=== PATIENT | female | born 1980 ===

== ENCOUNTER 2020-08-07 20:23 | Observation (INO) | payer OTHER ==
--- NOTE | 2020-08-07 20:33 | Event Note ---
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 pain is rated ast 5/10 sharp aching, This initial assessment/diagnostic orders/clinical plan/treatment(s) is/are subject to change based on patients health status, clinical progression and re- assessment by fellow clinical providers in the ED. Further treatment and workup at subsequent clinical providers discretion. Patient/guardian urged not to elope from the ED as their condition may be serious if not clinically assessed and managed. Initial orders include: cmp, cbc, ua, hcg,
[2020-08-07 20:54] LABS: Basophils # (Auto) 0.1 K/mm3 (0.0-0.1); Basophils % (Auto) 0.5 % (0.0-1.8); Eosinophils # (Auto) 0.2 K/mm3 (0.0-0.4); Eosinophils % (Auto) 1.2 % (0.0-4.3); Hematocrit 45.5 % (30.3-42.9); Lymphocytes # (Auto) 1.5 K/mm3 (1.2-5.4); Lymphocytes % (Auto) 10.8 % (13.4-35.0); Mean Corpuscular HGB Conc 33 % (30-34); Mean Corpuscular Volume 87 fl (79-97); Monocytes # (Auto) 0.6 K/mm3 (0.0-0.8); Monocytes % (Auto) 4.3 % (0.0-7.3); Platelet Count 100 K/mm3 (140-440); Red Blood Count 5.21 M/mm3 (3.65-5.03); Red Cell Distribution Width 13.8 % (13.2-15.2)
[2020-08-07 20:57] LABS: Bacteria,Urine 1+ /HPF (Negative); Bilirubin,Urine NEG (Negative); Blood,Urine NEG (Negative); Color,Urine Yellow (Yellow); Mucus,Urine 1+ /HPF; Protein,Urine <15 mg/dL mg/dL (Negative); RBC,Urine < 1.0 /HPF (0.0-6.0); Urobilinogen,Urine < 2.0 mg/dL (<2.0)
[2020-08-07 21:09] LABS: HCG Qualitative,Urine Negative (Negative)
[2020-08-07 21:15] LABS: Alanine Aminotransferase 127 units/L (7-56); Albumin 4.5 g/dL (3.9-5); Blood Urea Nitrogen 9 mg/dL (7-17); Calcium 8.8 mg/dL (8.4-10.2); Hemolysis Index 6
[2020-08-07 21:17] LABS: BUN/Creatinine Ratio 18
[2020-08-07] MEDS ORDERED: SODIUM CHLORIDE 0.9% 1000 ML 1,000 ML IV ONE (21:21)
[2020-08-07] MEDS ORDERED: KETOROLAC 30 MG/1 ML INJ IV ONE (23:15)
[2020-08-07] MEDS ORDERED: ONDANSETRON 4 MG/2 ML INJ IV ONE (23:15)
[2020-08-08] MEDS ORDERED: HYDROmorphone 1 MG/1 ML INJ IV ONE ×2 (00:12→02:59)
[2020-08-08] MEDS ORDERED: ACETAMINOPHEN 500 MG TAB PO ONE (00:12)
--- NOTE | 2020-08-08 00:14 | Emergency Department Report ---
ED General Adult HPI - General Chief complaint: Abdominal Pain Stated complaint: PAIN OVER C SECTION AND BACK PUI?: No Time Seen by Provider: 08/08/20 00:05 Source: patient, RN notes reviewed, old records reviewed Mode of arrival: Ambulatory Limitations: No Limitations - History of Present Illness Initial comments: The patient was evaluated in the emergency department for symptoms described in the history of present illness. He/she was evaluated in the context of the global COVID-19 pandemic, which necessitated consideration that the patient might be at risk for infection with the virus that causes COVID-19. Institutional protocols and algorithms that pertain to the evaluation of patients at risk for COVID-19 are in a state of rapid change based on information released by regulatory bodies including the CDC and federal and state organizations. These policies and algorithms were followed during the patient's care in the emergency department. Please note that these policies, procedures and recommendations changed on a rapid basis. Patient conversant in Ivorian and is fluent in Martiniquais. This provider is conver jey in Martiniquais. Patient is a 39-year-old female. She is not known to myself previously. 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 She presents to the ER today with complaint of nontraumatic left lower quadrant left flank pain. Pain has been present for approximately 19 to 20 hours. Positive nausea. Positive chills. Positive dysuria. Patient has surgical history significant for oophorectomy, and . However, her last abdominal surgery was 2 years ago. No headache, neck pain, chest pain, no loss of taste or smell, positive dysuria. No muscle aches. No diarrhea. -: Gradual, hour(s) Location: abdomen Radiation: abdomen, flank Consistency: constant Improves with: medication, rest Worsens with: movement - Related Data Home Medications Medication Instructions Recorded Confirmed Last Taken No Known Home Medications [No 08/08/20 08/08/20 Unknown Reported Home Medications] Allergies Allergy/AdvReac Type Severity Reaction Status Date / Time No Known Allergies Allergy Verified 08/07/20 20:31 ED Review of Systems ROS: Stated complaint: PAIN OVER C SECTION AND BACK Other details as noted in HPI Constitutional: fever (Subjective fever), malaise, weakness Eyes: denies: eye discharge ENT: denies: epistaxis Respiratory: denies: cough, shortness of breath Cardiovascular: denies: chest pain Gastrointestinal: abdominal pain, nausea, vomiting Genitourinary: dysuria Musculoskeletal: back pain Neurological: weakness Hematological/Lymphatic: denies: easy bleeding ED Past Medical Hx - Past Medical History Previous Medical History?: No - Surgical History Past Surgical History?: Yes Hx Appendectomy: Yes Additional Surgical History: unsure which ovary removed. x3 - Social History Smoking Status: Never Smoker Substance Use Type: None - Medications Home Medications: Home Medications Medication Instructions Recorded Confirmed Last Taken Type No Known Home Medications [No 08/08/20 08/08/20 Unknown History Reported Home Medications] ED Physical Exam - General Limitations: No Limitations General appearance: alert, in no apparent distress - Head Head exam: Present: atraumatic, normocephalic - Eye Eye exam: Present: normal appearance, EOMI. Absent: nystagmus - ENT ENT exam: Present: normal exam, normal orophraynx, mucous membranes moist, normal external ear exam - Neck Neck exam: Present: normal inspection, full ROM. Absent: tenderness, meningismus - Respiratory Respiratory exam: Present: normal lung sounds bilaterally. Absent: respiratory distress, wheezes, rales, rhonchi, stridor, accessory muscle use, decreased breath sounds - Cardiovascular Cardiovascular Exam: Present: normal rhythm, tachycardia, normal heart sounds. Absent: bradycardia, irregular rhythm, systolic murmur, diastolic murmur, rubs, gallop - GI/Abdominal GI/Abdominal exam: Present: soft, tenderness, other (Left lower quadrant tender to deep palpation). Absent: distended, guarding, rebound, rigid, pulsatile mass - Extremities Exam Extremities exam: Present: normal inspection, full ROM, other (2+ pulses noted in the bilateral upper and lower extremities. There is no palpable cord. negative Homans sign. Muscular compartments are soft. The pelvis is stable.). Absent: pedal edema, calf tenderness - Back Exam Back exam: Present: normal inspection, full ROM. Absent: tenderness, CVA tenderness (R), CVA tenderness (L), paraspinal tenderness, vertebral tenderness - Neurological Exam Neurological exam: Present: alert, other (No facial droop. Tongue midline. Ext raocular movements intact bilaterally. Facial sensation intact to light touch in V1, V2, V3 distribution bilaterally. 5 and a 5 strength in 4 extremities. Sensation intact to light touch in 4 extremities.) - Psychiatric Psychiatric exam: Present: anxious - Skin Skin exam: Present: warm, dry, intact, normal color. Absent: rash ED Course Vital Signs 08/07/20 08/08/20 08/08/20 20:30 00:30 02:00 Temperature 99.6 F 97.6 F Pulse Rate 120 H 97 H 87 Respiratory 18 18 16 Rate Blood Pressure 142/92 Blood Pressure 127/64 130/75 [Left] O2 Sat by Pulse 94 98 100 Oximetry O2 Sat by Pulse Oximetry [ Digit-Finger] 08/08/20 08/08/20 03:00 03:06 Temperature Pulse Rate 80 Respiratory 14 Rate Blood Pressure Blood Pressure 119/60 [Left] O2 Sat by Pulse 100 Oximetry O2 Sat by Pulse 99 Oximetry [ Digit-Finger] - Reevaluation(s) Reevaluation #1: 08/08/20 00:47 Differential diagnosis, including but not limited to: Renal colic, pyelonephritis, ovarian cyst, pelvic abscess, ovarian torsion Assessment and plan: 39-year-old female, with low-grade temperature, tachycardia, leukocytosis, left lower quadrant pain, complains of dysuria, however, urinalysis not suggestive of urinary tract infection, CT scan abdomen pelvis shows no obvious renal pathology, however, there is a complex left-sided ovarian lesion. CT scan of the abdomen pelvis was ordered prior to my personal evaluation, it is a noncontrast CT, and therefore limited diagnostic utility. We will obtain CT scan of the abdomen pelvis with IV contrast, as well as pelvic ultrasound. We will treat the patient's pain. We will reassess after initial data points. Reevaluation #2: 08/08/20 02:50 Ultrasound, CT scan of the abdomen pelvis with IV contrast are reviewed and appreciated. We have reviewed patient's medical records from [facility], 2019. Patient indeed had a total abdominal hysterectomy, laparotomy, exploratory Ovaries as per the operative report were left in situ She was discharged with antibiotics. Supposed to follow-up with outpatient gynecology. Patient also has a history of appendectomy. In 2019, she also had a CT scan of her abdomen pelvis which demonstrated a complex cystic uterine mass. She was also anemic, and given packed red blood cell transfusions. She had an MRI of the pelvis which showed an enlarged uterus, dominant fibroids, likely intramural with internal degeneration. MRI also demonstrated a left adnexal cyst. Patient did not follow-up with HOME VISITOR after she was discharged. 08/08/20 02:58 Patient ruling in for SIRS, with left lower quadrant abdominal pain. Ultrasound and CT scan abdomen pelvis show inflammatory lesion in the left adnexa, with inflammatory changes. Patient hemodynamically stable. Dr. Gracia, reed man on-call, to admit patient to his service. Blood cultures, antibiotics, fluids ordered. Patient feels improved. Patient is amenable to admission and hospitalization. 08/08/20 03:05 08/08/20 03:08 - Pulse Oximetry Interpretation Digit-Finger Initial Pulse Oximetry Readin O2 Sat by Pulse Oximetry: 99 Actions Taken: none ED Medical Decision Making - Lab Data Result diagrams: 08/07/20 20:33 08/07/20 20:33 Vital Signs 08/07/20 20:30 Temperature 99.6 F Pulse Rate 120 H Respiratory 18 Rate Blood Pressure 142/92 O2 Sat by Pulse 94 Oximetry Lab Results 08/07/20 08/07/20 08/07/20 Range/Units 20:33 20:33 21:35 WBC 14.2 H (4.5-11.0) K/mm3 RBC 5.21 H (3.65-5.03) M/mm3 Hgb 15.0 H (10.1-14.3) gm/dl Hct 45.5 H (30.3-42.9) % MCV 87 (79-97) fl MCH 29 (28-32) pg MCHC 33 (30-34) % RDW 13.8 (13.2-15.2) % Plt Count 100 L (140-440) K/mm3 Lymph % (Auto) 10.8 L (13.4-35.0) % [place] % (Auto) 4.3 (0.0-7.3) % Eos % (Auto) 1.2 (0.0-4.3) % Baso % (Auto) 0.5 (0.0-1.8) % Lymph # (Auto) 1.5 (1.2-5.4) K/mm3 [place] # (Auto) 0.6 (0.0-0.8) K/mm3 Eos # (Auto) 0.2 (0.0-0.4) K/mm3 Baso # (Auto) 0.1 (0.0-0.1) K/mm3 Seg Neutrophils % 83.2 H (40.0-70.0) % Seg Neutrophils # 11.8 H (1.8-7.7) K/mm3 Sodium 136 L (137-145) mmol/L Potassium 3.9 (3.6-5.0) mmol/L Chloride 103.9 (98-107) mmol/L Carbon Dioxide 20 L (22-30) mmol/L Anion Gap 16 mmol/L BUN 9 (7-17) mg/dL Creatinine 0.5 L (0.6-1.2) mg/dL Estimated GFR > 60 ml/min BUN/Creatinine Ratio 18 % Glucose 116 H (65-100) mg/dL Calcium 8.8 (8.4-10.2) mg/dL Total Bilirubin 0.40 (0.1-1.2) mg/dL AST 64 H (5-40) units/L ALT 127 H (7-56) units/L Alkaline Phosphatase 81 (35-129) units/L Total Protein 7.6 (6.3-8.2) g/dL Albumin 4.5 (3.9-5) g/dL Albumin/Globulin Ratio 1.5 % Lipase 17 (13-60) units/L Urine Color (Yellow) Urine Turbidity (Clear) Urine pH (5.0-7.0) Ur Specific [place] (1.003-1.030) Urine Protein (Negative) mg/dL Urine Glucose (UA) (Negative) mg/dL Urine Ketones (Negative) mg/dL Urine Blood (Negative) Urine Nitrite (Negative) Urine Bilirubin (Negative) Urine Urobilinogen (<2.0) mg/dL Ur Leukocyte Esterase (Negative) Urine WBC (Auto) (0.0-6.0) /HPF Urine RBC (Auto) (0.0-6.0) /HPF U Epithel Cells (Auto) (0-13.0) /HPF Urine Bacteria (Auto) (Negative) /HPF Urine Mucus /HPF Urine HCG, Qual (Negative) 08/07/20 Range/Units Unknown WBC (4.5-11.0) K/mm3 RBC (3.65-5.03) M/mm3 Hgb (10.1-14.3) gm/dl Hct (30.3-42.9) % MCV (79-97) fl MCH (28-32) pg MCHC (30-34) % RDW (13.2-15.2) % Plt Count (140-440) K/mm3 Lymph % (Auto) (13.4-35.0) % [place] % (Auto) (0.0-7.3) % Eos % (Auto) (0.0-4.3) % Baso % (Auto) (0.0-1.8) % Lymph # (Auto) (1.2-5.4) K/mm3 [place] # (Auto) (0.0-0.8) K/mm3 Eos # (Auto) (0.0-0.4) K/mm3 Baso # (Auto) (0.0-0.1) K/mm3 Seg Neutrophils % (40.0-70.0) % Seg Neutrophils # (1.8-7.7) K/mm3 Sodium (137-145) mmol/L Potassium (3.6-5.0) mmol/L Chloride (98-107) mmol/L Carbon Dioxide (22-30) mmol/L Anion Gap mmol/L BUN (7-17) mg/dL Creatinine (0.6-1.2) mg/dL Estimated GFR ml/min BUN/Creatinine Ratio % Glucose (65-100) mg/dL Calcium (8.4-10.2) mg/dL Total Bilirubin (0.1-1.2) mg/dL AST (5-40) units/L ALT (7-56) units/L Alkaline Phosphatase (35-129) units/L Total Protein (6.3-8.2) g/dL Albumin (3.9-5) g/dL Albumin/Globulin Ratio % Lipase (13-60) units/L Urine Color Yellow (Yellow) Urine Turbidity Slightly-cloudy (Clear) Urine pH 5.0 (5.0-7.0) Ur Specific [place] 1.017 (1.003-1.030) Urine Protein <15 mg/dl (Negative) mg/dL Urine Glucose (UA) Neg (Negative) mg/dL Urine Ketones 80 (Negative) mg/dL Urine Blood Neg (Negative) Urine Nitrite Neg (Negative) Urine Bilirubin Neg (Negative) Urine Urobilinogen < 2.0 (<2.0) mg/dL Ur Leukocyte Esterase Neg (Negative) Urine WBC (Auto) 1.0 (0.0-6.0) /HPF Urine RBC (Auto) < 1.0 (0.0-6.0) /HPF U Epithel Cells (Auto) 1.0 (0-13.0) /HPF Urine Bacteria (Auto) 1+ (Negative) /HPF Urine Mucus 1+ /HPF Urine HCG, Qual Negative (Negative) - Radiology Data Radiology results: report reviewed, image reviewed CT ABDOMEN AND PELVIS WITHOUT CONTRAST INDICATION / CLINICAL INFORMATION: Pt st ates LEFT sided flank pain with N/V x 2 days.. TECHNIQUE: Axial CT images were obtained through the abdomen and pelvis without IV contrast. All CT scans at this location are performed using CT dose reduction for ALARA by means of automated exposure control. COMPARISON: None available. FINDINGS: LOWER CHEST: Bibasilar atelectasis. LIVER: Hepatic steatosis. GALLBLADDER: No significant abnormality. BILE DUCTS: No significant abnormality. PANCREAS: No significant abnormality. SPLEEN: No significant abnormality. ADRENALS: No significant abnormality. RIGHT KIDNEY / URETER: No significant abnormality. LEFT KIDNEY / URETER: No stones or hydronephrosis. No acute abnormality. STOMACH / SMALL BOWEL: No significant abnormality. COLON: No significant abnormality. APPENDIX: Appendectomy. PERITONEUM: No free fluid. No free air. No fluid collection. LYMPH NODES: No significant adenopathy. AORTA / ARTERIES: No significant abnormality. IVC / VEINS: No significant abnormality. URINARY BLADDER: No significant abnormality. REPRODUCTIVE ORGANS: Uterus is absent. Left adnexal minimally complex cystic lesion measuring 6.4 x 6.1 cm with mild adjacent inflammation. ADDITIONAL FINDINGS: None. SKELETAL SYSTEM: No significant abnormality. IMPRESSION: 1. No urinary tract stones or hydronephrosis. 2. 6.4 cm left adnexal minimally complex cystic lesion with mild adjacent inflammation. Follow-up ultrasound pelvis is recommended in 2-6 months to assess for stability or resolution.. Signer Name: Faustino Diallo MD Signed: 08/07/2020 11:13 PM Workstation Name: [id number] ULTRASOUND PELVIS INDICATION / CLINICAL INFORMATION: llq and pelvic pain. Patient reports history of left ovary removal. TECHNIQUE: Transabdominal. Duplex Color Doppler used: Yes. COMPARISON: CT from same date. FINDINGS: UTERUS: Surgically absent. RIGHT ADNEXA: No significant ovarian cyst or mass. Normal color Doppler blood flow. LEFT ADNEXA: Left ovary not definitely visualized. Mildly complex fluid collection in the left adnexa measuring 5.7 x 6.2 x 4.5 cm. URINARY BLADDER: No significant abnormality. FREE FLUID: None. ADDITIONAL FINDINGS: None. IMPRESSION: 1. Mildly complex left adnexal fluid collection corresponding to CT finding. Left ovary not definitely visualized and may be surgically absent. S igner Name: Faustino Diallo MD Signed: 08/08/2020 1:36 AM Workstation Name: [id number] TECHNIQUE: Axial CT images were obtained through the abdomen and pelvis after 100 mL Omnipaque 300 IV contrast. Delayed images were obtained through the kidneys and bladder. All CT scans at this location are performed using CT dose reduction for ALARA by means of automated exposure control. COMPARISON: Nonco ntrast CT dated 08/07/20 FINDINGS: LOWER CHEST: No significant abnormality. LIVER: Hepatic steatosis. GALLBLADDER: No significant abnormality. BILE DUCTS: No significant abnormality. PANCREAS: No significant abnormality. SPLEEN: No significant abnormality. ADRENALS: No significant abnormality. RIGHT KIDNEY / URETER: No significant abnormality. LEFT KIDNEY / URETER: No significant abnormality. STOMACH / SMALL BOWEL: No significant abnormality. COLON: No significant abnormality. APPENDIX: No significant abnormality. PERITONEUM: No free fluid. No free air. No fluid collection. LYMPH NODES: No significant adenopathy. AORTA / ARTERIES: No significant abnormality. IVC / VEINS: No significant abnormality. URINARY BLADDER: No significant abnormality. REPRODUCTIVE ORGANS: Uterus is absent. Mildly complex, multiloculated left adnexal cystic lesion appears similar again measuring 6.4 cm. Minimal surrounding inflammatory change. ADDITIONAL FINDINGS: None. SKELETAL SYSTEM: No significant abnormality. IMPRESSION: 1. Mildly complex, multiloculated left adnexal cystic lesion with minimal surrounding inflammation. 2. Hepatic steatosis. Signer Name: Faustino Diallo MD Signed: 08/08/2020 1:29 AM Workstation Name: [id number] Critical care attestation.: If time is entered above; I have spent that time in minutes in the direct care of this critically ill patient, excluding procedure time. ED Disposition Clinical Impression: SIRS (systemic inflammatory response syndrome), Transaminitis, Acute abdominal pain, Complex cyst of uterine adnexa Disposition: OP ADMIT IP TO THIS HOSP Is pt being admited?: Yes Does the pt Need Aspirin: No Condition: Good Instructions: Abdominal Pain (ED) Referrals: PRIMARY CARE, [Primary Care Provider] - 3-5 Days
--- NOTE | 2020-08-08 00:17 | Cat Scan Report ---
CT ABDOMEN AND PELVIS WITHOUT CONTRAST INDICATION / CLINICAL INFORMATION: Pt states LEFT sided flank pain with N/V x 2 days.. TECHNIQUE: Axial CT images were obtained through the abdomen and pelvis without IV contrast. All CT scans at this location are performed using CT dose reduction for ALARA by means of automated exposure control. COMPARISON: None available. FINDINGS: LOWER CHEST: Bibasilar atelectasis. LIVER: Hepatic steatosis. GALLBLADDER: No significant abnormality. BILE DUCTS: No significant abnormality. PANCREAS: No significant abnormality. SPLEEN: No significant abnormality. ADRENALS: No significant abnormality. RIGHT KIDNEY / URETER: No significant abnormality. LEFT KIDNEY / URETER: No stones or hydronephrosis. No acute abnormality. STOMACH / SMALL BOWEL: No significant abnormality. COLON: No significant abnormality. APPENDIX: Appendectomy. PERITONEUM: No free fluid. No free air. No fluid collection. LYMPH NODES: No significant adenopathy. AORTA / ARTERIES: No significant abnormality. IVC / VEINS: No significant abnormality. URINARY BLADDER: No significant abnormality. REPRODUCTIVE ORGANS: Uterus is absent. Left adnexal minimally complex cystic lesion measuring 6.4 x 6 .1 cm with mild adjacent inflammation. ADDITIONAL FINDINGS: None. SKELETAL SYSTEM: No significant abnormality. IMPRESSION: 1. No urinary tract stones or hydronephrosis. 2. 6.4 cm left adnexal minimally complex cystic lesion with mild adjacent inflammation. Follow-up ult rasound pelvis is recommended in 2-6 months to assess for stability or resolution.. Signer Name: Faustino Diallo MD Signed: 08/08/2020 12:13 AM Workstation Name: [id number]
[2020-08-08] MEDS ORDERED: SODIUM CHLORIDE 0.9% 1000 ML 1,000 ML ONE (00:23)
--- NOTE | 2020-08-08 02:34 | Cat Scan Report ---
CT ABDOMEN AND PELVIS WITH CONTRAST INDICATION / CLINICAL INFORMATION: L.L.Q. abdominal pain, inflammatory lesion left pelvis. TECHNIQUE: Axial CT images were obtained through the abdomen and pelvis after 100 mL Omnipaque 300 IV contrast. Delayed images were obtained through the kidneys and bladder. All CT [facility] are performed using CT dose reduction for ALARA by means of automated exposure control. COMPARISON: Noncontrast CT dated 08/07/20 FINDINGS: LOWER CHEST: No significant abnormality. LIVER: Hepatic steatosis. GALLBLADDER: No significant abnormality. BILE DUCTS: No significant abnormality. PANCREAS: No significant abnormality. SPLEEN: No significant abnormality. ADRENALS: No significant abnormality. RIGHT KIDNEY / URETER: No significant abnormality. LEFT KIDNEY / URETER: No significant abnormality. STOMACH / SMALL BOWEL: No significant abnormality. COLON: No significant abnormality. APPENDIX: No significant abnormality. PERITONEUM: No free fluid. No free air. No fluid collection. LYMPH NODES: No significant adenopathy. AORTA / ARTERIES: No significant abnormality. IVC / VEINS: No significant abnormality. URINARY BLADDER: No significant abnormality. REPRODUCTIVE ORGANS: Uterus is absent. Mildly complex, multiloculated left adnexal cystic lesion appe ars similar again measuring 6.4 cm. Minimal surrounding inflammatory change. ADDITIONAL FINDINGS: None. SKELETAL SYSTEM: No significant abnormality. IMPRESSION: 1. Mildly complex, multiloculated left adnexal cystic lesion with minimal surrounding inflammation. 2. Hepatic steatosis. Signer Name: Faustino Diallo MD Signed: 08/08/2020 2:29 AM Workstation Name: [id number]
--- NOTE | 2020-08-08 02:40 | Ultrasound Report ---
ULTRASOUND PELVIS INDICATION / CLINICAL INFORMATION: llq and pelvic pain. Patient reports history of left ovary removal . TECHNIQUE: Transabdominal. Duplex Color Doppler used: Yes. COMPARISON: CT from same date. FINDINGS: UTERUS: Surgically absent. RIGHT ADNEXA: No significant ovarian cyst or mass. Normal color Doppler blood flow. LEFT ADNEXA: Left ovary not definitely visualized. Mildly complex fluid collection in the left adnexa measuring 5.7 x 6.2 x 4.5 cm. URINARY BLADDER: No significant abnormality. FREE FLUID: None. ADDITIONAL FINDINGS: None. IMPRESSION: 1. Mildly complex left adnexal fluid collection corresponding to CT finding. Left ovary not definitel y visualized and may be surgically absent. Signer Name: Faustino Diallo MD Signed: 08/08/2020 2:36 AM Workstation Name: [id number]
[2020-08-08] MEDS ORDERED: PIPERACIL/TAZOBACTA 4.5/NS 100 4.5 GM/100 ML VIAL IV ONE (02:59)
[2020-08-08] MEDS ORDERED: ONDANSETRON 4 MG/2 ML INJ IV PRN (03:17)
[2020-08-08] MEDS ORDERED: METOCLOPRAMIDE 10 MG/2 ML INJ IV PRN (03:17)
[2020-08-08] MEDS ORDERED: ACETAMINOPHEN 325 MG TAB PO PRN (03:17)
[2020-08-08] MEDS ORDERED: PROMETHAZINE 25 MG RECT SUPP PR PRN (03:17)
[2020-08-08] MEDS ORDERED: NALOXONE 0.4 MG/1 ML INJ IV PRN (03:17)
[2020-08-08] MEDS: D5W/LACTATED RINGERS 1,000 ML IV SCH ×2 (04:20→18:55)
[2020-08-08] MEDS: MORPHINE 2 MG/1 ML INJ IV PRN ×3 (05:13→22:03)
[2020-08-08] MEDS: GENTAMICIN/NS 120MG/100ML 120 MG/100 ML BAG IV SCH ×3 (05:20→20:35)
[2020-08-08] MEDS: metroNIDAZOLE/NS 500 MG/100 ML 500 MG/100 ML BAG IV SCH ×2 (06:21→17:00)
[2020-08-08] MEDS: MORPHINE 4 MG/1 ML INJ IV PRN ×4 (10:11→18:40)
[2020-08-08 14:22] LABS: Basophils % (Auto) 0.2 % (0.0-1.8); Eosinophils # (Auto) 0.3 K/mm3 (0.0-0.4); Eosinophils % (Auto) 2.4 % (0.0-4.3); Hematocrit 40.7 % (30.3-42.9); Hemoglobin 13.7 gm/dl (10.1-14.3); Lymphocytes # (Auto) 1.3 K/mm3 (1.2-5.4); Lymphocytes % (Auto) 11.9 % (13.4-35.0); Mean Corpuscular HGB Conc 34 % (30-34); Mean Corpuscular Volume 87 fl (79-97); Monocytes # (Auto) 0.7 K/mm3 (0.0-0.8); Monocytes % (Auto) 6.9 % (0.0-7.3); Red Blood Count 4.67 M/mm3 (3.65-5.03); Red Cell Distribution Width 13.7 % (13.2-15.2)
[2020-08-08 14:23] LABS: Platelet Count 87 K/mm3 (140-440)
[2020-08-08 14:38] LABS: Alanine Aminotransferase 97 units/L (7-56); Albumin 3.9 g/dL (3.9-5); Blood Urea Nitrogen 7 mg/dL (7-17); Calcium 8.1 mg/dL (8.4-10.2); Hemolysis Index 7
[2020-08-08 14:39] LABS: BUN/Creatinine Ratio 14
--- NOTE | 2020-08-08 16:42 | History and Physical Report ---
History of Present Illness Date of examination: 08/08/20 Date of admission: 08/08/20 03:05 History of present illness: PT is a 39-year-old G3, P3 with a history of a hysterectomy but still has her ovaries. Her old operative report is in the paper chart. Of note, the surgery title notes her ovaries were removed but in the body of the operative report, it states that the ovaries were left in situ. 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 She presented to ER last night with left lower quadrant pain. Patient had a CT and ultrasound yesterday showing a 6+ centimeters multiloculated left adnexal cyst. The CAT scan showed some mild inflammation around it as well. Her white count on admission was over 14. As a result, patient admitted for pain management and for IV antibiotics in case she has a tubo-ovarian abscess. Patient is still having pain but is controlled appropriately with the pain medications. Patient had a repeat white count today that was 10. Her platelets went from 100 to 87 though today. Patient also had mildly elevated LFTs yesterday which are improved today and the CAT scan showed some hepatic steatosis. No right upper quadrant pain. Today's interview was done via the construction consultant on the phone. Past History Past Medical History: no pertinent history Past Surgical History: section (x3), hysterectomy Medications and Allergies Allergies Allergy/AdvReac Type Severity Reaction Status Date / Time No Known Allergies Allergy Verified 08/07/20 20:31 Home Medications Medication Instructions Recorded Confirmed Last Taken Type No Known Home Medications [No 08/08/20 08/08/20 Unknown History Reported Home Medications] Active Meds: Active Medications Acetaminophen (Acetaminophen 325 Mg Tab) 650 mg PO Q4H PRN PRN Reason: Pain, Mild (1-3) Dextrose/Lactated Ringer's (D5lr) 1,000 mls @ 125 mls/hr IV DIRECT [facility] Last Admin: 08/08/20 04:20 Dose: 125 mls/hr Documented by: Clindamycin HCl (Cleocin 900 Mg/50 Ml) 900 mg in 50 mls @ 100 mls/hr IV Q8HR [facility]; Protocol Last Admin: 08/08/20 16:16 Dose: 100 mls/hr Documented by: Metronidazole (Flagyl 500 Mg/100 Ml) 500 mg in 100 mls @ 100 mls/hr IV Q8HR [facility]; Protocol Last Admin: 08/08/20 06:21 Dose: 100 mls/hr Documented by: Gentamicin Sulfate/Sodium Chloride (Gentamicin/Ns 120mg/100ml) 120 mg in 100 mls @ 133.333 mls/hr IV Q8H [facility] Last Admin: 08/08/20 13:07 Dose: 133.333 mls/hr Documented by: Metoclopramide HCl (Metoclopramide 10 Mg/2 Ml Inj) 10 mg IV Q6H PRN PRN Reason: Nausea And Vomiting Morphine Sulfate (Morphine 2 Mg/1 Ml Inj) 2 mg IV Q1H PRN PRN Reason: Pain, Moderate (4-6) Last Admin: 08/08/20 07:48 Dose: 2 mg Documented by: Morphine Sulfate (Morphine 4 Mg/1 Ml Inj) 4 mg IV Q1H PRN PRN Reason: Pain , Severe (7-10) Last Admin: 08/08/20 16:16 Dose: 4 mg Documented by: Naloxone HCl (Naloxone 0.4 Mg/1 Ml Inj) 0.1 mg IV Q2MIN PRN PRN Reason: Res Rate </= 8 or 02 SAT < 92% Ondansetron HCl (Ondansetron 4 Mg/2 Ml Inj) 4 mg IV Q4H PRN PRN Reason: Nausea And Vomiting Promethazine HCl (Promethazine 25 Mg Rect Supp) 25 mg CA Q6H PRN PRN Reason: Nausea And Vomiting Review of Systems All systems: negative (Except HPI) - Vital Signs Vital signs: Vital Signs Temp Pulse Resp BP Pulse Ox 99.6 F 120 H 18 142/92 94 08/07/20 20:30 08/07/20 20:30 08/07/20 20:30 08/07/20 20:30 08/07/20 20:30 Temp Pulse Resp BP Pulse Ox 97.9 F 93 H 18 127/66 92 08/08/20 07:55 08/08/20 07:55 08/08/20 16:16 08/08/20 07:55 08/08/20 07:55 - Physical Exam Vulva: both: normal Vagina: Positive: normal moisture. Negative: discharge Cervix: Positive: absent Uterus: Positive: absent Adnexa: left: normal (On vaginal exam, she had a tender fullness that was palpable particular in the posterior cul-de-sac more to the left.) Results Result Diagrams: 08/08/20 13:49 08/08/20 13:49 Abnormal lab results 08/07/20 08/07/20 08/08/20 Range/Units 20:33 20:33 13:49 WBC 14.2 H (4.5-11.0) K/mm3 RBC 5.21 H (3.65-5.03) M/mm3 Hgb 15.0 H (10.1-14.3) gm/dl Hct 45.5 H (30.3-42.9) % Plt Count 100 L 87 L (140-440) K/mm3 Lymph % (Auto) 10.8 L 11.9 L (13.4-35.0) % Seg Neutrophils % 83.2 H 78.6 H (40.0-70.0) % Seg Neutrophils # 11.8 H 8.3 H (1.8-7.7) K/mm3 Sodium 136 L (137-145) mmol/L Potassium (3.6-5.0) mmol/L Carbon Dioxide 20 L (22-30) mmol/L Creatinine 0.5 L (0.6-1.2) mg/dL Glucose 116 H (65-100) mg/dL Calcium (8.4-10.2) mg/dL AST 64 H (5-40) units/L ALT 127 H (7-56) units/L 08/08/20 Range/Units 13:49 WBC (4.5-11.0) K/mm3 RBC (3.65-5.03) M/mm3 Hgb (10.1-14.3) gm/dl Hct (30.3-42.9) % Plt Count (140-440) K/mm3 Lymph % (Auto) (13.4-35.0) % Seg Neutrophils % (40.0-70.0) % Seg Neutrophils # (1.8-7.7) K/mm3 Sodium 135 L (137-145) mmol/L Potassium 3.5 L (3.6-5.0) mmol/L Carbon Dioxide (22-30) mmol/L Creatinine 0.5 L (0.6-1.2) mg/dL Glucose 105 H (65-100) mg/dL Calcium 8.1 L (8.4-10.2) mg/dL AST 47 H (5-40) units/L ALT 97 H (7-56) units/L All other labs normal. Assessment and Plan - Patient Problems (1) Complex cyst of uterine adnexa Current Visit: Yes Status: Acute Plan to address problem: Patient counseled via the construction consultant. Would continue the antibiotics into tomorrow which would give her over 24 hours of antibiotics. If patient is still having bothersome pain tomorrow morning, will need to proceed with an operative laparoscopy at that point. Arrangements with the main OR tomorrow have been made. We will also repeat her CBC tomorrow to watch her white count and her platelet count in particular. We will also repeat her LFTs tomorrow. Blood cultures were drawn last night and those are still pending. (2) Pelvic pain Current Visit: Yes Status: Acute
[2020-08-09] MEDS: metroNIDAZOLE/NS 500 MG/100 ML 500 MG/100 ML BAG IV SCH ×3 (01:37→23:17)
[2020-08-09] MEDS: GENTAMICIN/NS 120MG/100ML 120 MG/100 ML BAG IV SCH ×3 (05:11→20:55)
[2020-08-09] MEDS ORDERED: propofoL 200 MG/20 ML VIAL IV ONE (07:45)
[2020-08-09] MEDS ORDERED: HYDROmorphone 1 MG/1 ML INJ ONE ×2 (07:45→11:17)
[2020-08-09] MEDS ORDERED: LIDOCAINE MPF (2%) 20 MG/1 ML VIAL 5 ML ONE (07:45)
[2020-08-09] MEDS ORDERED: ROCURONIUM 50 MG/5 ML INJ IV ONE ×2 (07:46→09:43)
[2020-08-09] MEDS ORDERED: BUPIVACAINE/PF (0.5%) 5 MG/1 ML 30 ML VIAL INFILTRATI ONE ×2 (07:52→10:27)
--- NOTE | 2020-08-09 07:54 | Anesthesia Consultation ---
Anesthesia Consult and Med Hx Date of service: 08/09/20 - Airway Anesthetic Teeth Evaluation: Good ROM Head & Neck: Adequate Mental/Hyoid Distance: Adequate Mallampati Class: Class III Intubation Access Assessment: Possibly Difficult - Pre-Operative Health Status ASA Pre-Surgery Classification: ASA2 Proposed Anesthetic Plan: General - Pulmonary Hx Asthma: No COPD: No Hx Pneumonia: No - Endocrine Hx End Stage Renal Disease: No - Other Systems Hx Obesity: Yes (BMI 37.4)
--- NOTE | 2020-08-09 07:55 | Anesthesia Day of Surgery ---
Anesthesia Day of Surgery - Day of Surgery Patient Examined: Yes Patient H&P Reviewed: Yes Patient is NPO: Yes
[2020-08-09 08:44] LABS: Basophils % (Auto) 0.3 % (0.0-1.8); Eosinophils # (Auto) 0.3 K/mm3 (0.0-0.4); Eosinophils % (Auto) 2.8 % (0.0-4.3); Hematocrit 39.5 % (30.3-42.9); Hemoglobin 13.2 gm/dl (10.1-14.3); Lymphocytes # (Auto) 1.1 K/mm3 (1.2-5.4); Lymphocytes % (Auto) 10.7 % (13.4-35.0); Mean Corpuscular HGB Conc 33 % (30-34); Mean Corpuscular Volume 88 fl (79-97); Monocytes # (Auto) 0.6 K/mm3 (0.0-0.8); Monocytes % (Auto) 5.4 % (0.0-7.3); Red Blood Count 4.49 M/mm3 (3.65-5.03); Red Cell Distribution Width 13.6 % (13.2-15.2)
[2020-08-09 08:45] LABS: Platelet Count 81 K/mm3 (140-440)
[2020-08-09 09:00] LABS: Alanine Aminotransferase 78 units/L (7-56); Albumin 3.7 g/dL (3.9-5); Blood Urea Nitrogen 9 mg/dL (7-17); Hemolysis Index 4
[2020-08-09 09:06] LABS: BUN/Creatinine Ratio 15
[2020-08-09] MEDS ORDERED: LACTATED RINGERS 1,000 ML ONE ×2 (09:43→10:50)
[2020-08-09] MEDS ORDERED: KETOROLAC 30 MG/1 ML INJ ONE (10:24)
[2020-08-09] MEDS ORDERED: NEOSTIGMINE 10MG/10 ML INJ MDV ONE (10:24)
[2020-08-09] MEDS ORDERED: ONDANSETRON 4 MG/2 ML INJ ONE (10:25)
[2020-08-09] MEDS ORDERED: GLYCOPYRROLATE 0.4 MG/2 ML INJ ONE (10:25)
[2020-08-09] MEDS ORDERED: SODIUM CHLORIDE 0.9% IRR 1,500 ML BOTTLE IR ONE (10:28)
--- NOTE | 2020-08-09 11:01 | Progress Note ---
Assessment and Plan - Patient Problems (1) Complex cyst of uterine adnexa Current Visit: Yes Status: Acute Plan to address problem: To OR for laparoscopic, possible open, left ovarian cystectomy, possible left ovarian oophrectomy --Questions solicited and answered --Consented in the chart Subjective - Subjective Date of service: 08/09/20 Principal diagnosis: LLQ pain, TOA vs torsion Interval history: Patient with pain overall improved however persistent and mild in the left lower quadrant. After extended discussion including possibly requiring an open incision given the history of multiple abdominal surgeries, patient decided to proceed with surgical management for assessment and resection of left lower quadrant mass. Denies current nausea, vomiting, fevers, chills Patient reports: voiding normally, pain well controlled, flatus Objective - Vital Signs Latest vital signs: Vital Signs Temp Pulse Pulse Resp Resp BP Pulse Ox 08/09/20 05:12 98.0 F 89 18 119/74 93 08/08/20 23:54 98.0 F 95 H 18 120/73 92 08/08/20 22:33 18 08/08/20 22:03 18 08/08/20 22:00 80 18 18 08/08/20 20:18 98.1 F 82 18 124/82 93 08/08/20 18:40 18 08/08/20 16:16 18 08/08/20 16:01 97.9 F 94 H 18 142/85 95 08/08/20 13:07 18 Intake and Output 08/08/20 08/09/20 08/09/20 23:59 07:59 15:59 Intake Total 490 Output Total 400 Balance 90 Intake: IV 250 CLEOCIN 900 MG/50 mL 900 50 mg In 50 ml @ 100 mls/hr IV Q8HR [facility] Rx#:[id number] FLAGYL 500 MG/100 ML 500 100 mg In 100 ml @ 100 mls/hr IV Q8HR [facility] Rx#: [id number] GENTAMICIN/NS 120MG/100ML 100 120 mg In 100 ml @ 133. 333 mls/hr IV Q8H [facility] Rx# :[id number] Oral 240 Output: Urine 400 Void 400 Other: Total, Intake Amount 240 Total, Output Amount 400 Voiding Method Toilet # Voids Void 1 2 - Exam Abdomen: Present: normal appearance, normal bowel sounds, other (discomfort in LLQ, multiple well appearing laparoscopic, pfannenstiel, and vertical midline scars) - Labs Labs: Abnormal lab results 08/08/20 08/08/20 08/09/20 Range/Units 13:49 13:49 06:59 Plt Count 87 L 81 L (140-440) K/mm3 Lymph % (Auto) 11.9 L 10.7 L (13.4-35.0) % Lymph # (Auto) 1.1 L (1.2-5.4) K/mm3 Seg Neutrophils % 78.6 H 80.8 H (40.0-70.0) % Seg Neutrophils # 8.3 H 8.5 H (1.8-7.7) K/mm3 Sodium 135 L (137-145) mmol/L Potassium 3.5 L (3.6-5.0) mmol/L Creatinine 0.5 L (0.6-1.2) mg/dL Glucose 105 H (65-100) mg/dL Calcium 8.1 L (8.4-10.2) mg/dL AST 47 H (5-40) units/L ALT 97 H (7-56) units/L Albumin (3.9-5) g/dL 08/09/20 Range/Units 06:59 Plt Count (140-440) K/mm3 Lymph % (Auto) (13.4-35.0) % Lymph # (Auto) (1.2-5.4) K/mm3 Seg Neutrophils % (40.0-70.0) % Seg Neutrophils # (1.8-7.7) K/mm3 Sodium (137-145) mmol/L Potassium 3.3 L (3.6-5.0) mmol/L Creatinine (0.6-1.2) mg/dL Glucose 110 H (65-100) mg/dL Calcium 8.0 L (8.4-10.2) mg/dL AST (5-40) units/L ALT 78 H (7-56) units/L Albumin 3.7 L (3.9-5) g/dL
--- NOTE | 2020-08-09 11:05 | Procedure Note ---
Date of procedure: 08/09/20 Pre-op diagnosis: left ovarian cyst Post-op diagnosis: other (pelvic mass with surrounding inflammation and bowel adhesions, not removed with proximity of ureters) Procedure: Preoperative diagnosis: 1. left ovarian cyst Postoperative diagnosis: Densely adhered pelvic mass, unclear origin Operation performed: 1. Diagnostic laparoscopy, aborted for bowel adhesions in lower pelvis, unable to visualize pelvic mass 2. Exploratory laparotomy with intraoperative consult by Gen Surgeon Dr Camargo for bowel adhesion management 3. Lysis of adhesions 4. Procedure aborted prior to resection of pelvic mass Surgeon: Scot Carlton MD Tack Driller: Solange AVILES, intraoperative consult Anesthesia: General endotracheal anesthesia EBL 50 IVF 1300 UOP 125 Pathology specimens: 1. None Complications: none Disposition and condition: To the PACU in stable condition Findings: 1. Dense omental and bowel adhesions most pronounced in the lower pelvis covering the location of bilateral adnexa, cul-de-sac, and bladder 2. Large and deep midline mass palpated with surrounding bowel adhesions in close proximity to the ureters not clearly attached to adnexal structures. 3. No definitive adnexa or adnexal masses appreciated Statement of Medical Necessity: 39 yo c/b history of x3, laparoscopic appendectomy, open hysterectomy +/- removal of ovaries presenting for surgical management of left adnexal mass. On operative report of prior hysterectomy performed at outside facility, the title states that ovaries were removed, however the body of the text stated that the ovaries were left in situ. Patient was unsure about the status of her ovaries. Right ovary visualized on ultrasound imaging on this admission, however definitive left ovary was not identified. On CT and ultrasound imaging from 08/07-03/2021, there was noted to be a 6.4 centimeter multiloculated left adnexal cyst. The CT scan showed some mild inflammation around the mass as well. Given the noted inflammation, white count of 14, and mild fever on presentation, patient was initially admitted for pain management and IV antibiotics for concern of tubo-ovarian abscess. Patient was still having pain, but improving on pain management. After extensive conversation with the patient with management options including expectant management and surgical management, patient decided to proceed with surgical management to confirm etiology of left lower quadrant pain. The procedure risk, benefits, indications and alternatives were reviewed with patient. She desired definitive surgical management and declined further medical management of her condition. Description of operation: After obtaining informed consent the patient was taken to the operating room where satisfactory general endotracheal anesthesia was established. The patient was placed in supine position ensuring proper positioning and cushioning to avoid nerve injury. An exam under anesthesia was performed with the findings noted below. She was prepped and draped in the usual sterile fashion. The history of multiple abdominal surgeries, the [place] location was decided upon for initial entry into the abdomen. A 5 mm incision was made with the blade, towel clips were applied to each side of the incision and elevated away from the abdominal wall for countertraction and the 5 mm trocar was inserted without difficulty into the abdominal cavity. Insufflation was obtained. The abdomen was inspected with the findings noted above. Given the adnexal mass was not definitively identified and there were dense omental and bowel adhesions in the lower pelvis, the decision was made to proceed with a open vertical incision for an exploratory laparotomy. A vertical incision was made at a previous vertical skin incision and carried down to the fascia first by using the scalpel and then with Bovie elec trocautery. Hemostasis was obtained with Bovie electrocautery. The fascia was incised at the midline and the incision was extended laterally curved Miller scissors. The rectus muscle was at the midline. The peritoneum was notified and entered bluntly. The peritoneal cavity was explored with the findings noted above. Given dense bowel and omental adhesions involving the operative field, the decision was made to consult general surgery for adhesiolysis in order to identify adnexal structures. Please see general surgery note for further information regarding this part of the procedure. A griffin catheter was inserted at this time. After significant lysis of adhesions, the pelvic mass was partially identified more medial and superior than initially anticipated with close proximity to the ureters. Given this finding, the decision was made to abort the procedure given extent not previously discussed with patient and need for possible urology and gynecology oncology services for further management. The abdomen was noted to be hemostatic prior to closure without any structures were removed. Count was noted to be correct. Fascia was closed in a running fashion with 0 Vicryl suture. Subcutaneous tissue was irrigated and rendered hemostatic with Bovie electrocautery and reapproximated with 2-0 Vicryl suture. The skin was closed with marco and a sterile dressing was applied. The patient was returned to dorsal supine position, extubated without difficulty and taken to recovery room in stable condition. There were no surgical or anesthetic complications. Anesthesia: GETA Surgeon: SCOT CARLTON JR Tack Driller: MARCELLUS CAMARGO (consulted general surgery with bowel adhesions ident ified) Estimated blood loss: 50-100ml IV fluids: 1,300 Urine output: 125 Pathology: none Condition: stable Disposition: PACU
[2020-08-09] MEDS: HYDROmorphone 1 MG/1 ML INJ IV PRN ×2 (11:20→11:30)
[2020-08-09] MEDS ORDERED: ONDANSETRON 4 MG/2 ML INJ IV PRN (11:30)
--- NOTE | 2020-08-09 13:14 | Post Anesthesia Evaluation ---
- Post Anesthesia Evaluation Patient Participated: Yes Airway Patent: Yes Stable Respiratory Function: Yes Nausea/Vomiting: No Temp > 96.8F: Yes Pain Manageable: Yes Adequeate Hydration: Yes Anesthesia Complications: No Block Receding Appropriately: Not Applicable Patient on Ventilator: No
[2020-08-09] MEDS: MORPHINE 2 MG/1 ML INJ IV PRN (13:56)
--- NOTE | 2020-08-09 15:19 | Event Note ---
Date: 08/09/20 Discussed with patient and her partner about the procedure. Discussed that the surgery was aborted secondary to dense adhesions that were not expected. Recommended repeat surgical management with urology available for possible stent placement and gynecology oncology given high concern for possible bowel injury given pelvic mass densely adhered to bowel in the deep lower pelvis. Patient expressed understanding. Currently working with clinic for outpatient gynecology oncology surgical management. To formalize plan prior to discharge home.
[2020-08-09] MEDS: KETOROLAC 30 MG/1 ML INJ IV SCH ×2 (17:15→23:21)
[2020-08-09] MEDS: MORPHINE 4 MG/1 ML INJ IV PRN (20:55)
[2020-08-10] MEDS: GENTAMICIN/NS 120MG/100ML 120 MG/100 ML BAG IV SCH ×3 (04:50→21:03)
[2020-08-10] MEDS: D5W/LACTATED RINGERS 1,000 ML IV SCH ×2 (04:52→20:09)
[2020-08-10] MEDS: KETOROLAC 30 MG/1 ML INJ IV SCH (04:56)
[2020-08-10] MEDS: metroNIDAZOLE/NS 500 MG/100 ML 500 MG/100 ML BAG IV SCH ×2 (08:30→17:00)
[2020-08-10] MEDS: IBUPROFEN 800 MG TAB PO PRN (13:31)
--- NOTE | 2020-08-10 15:59 | Progress Note ---
Assessment and Plan - Patient Problems (1) Complex cyst of uterine adnexa Current Visit: Yes Status: Acute (2) Pelvic pain Current Visit: Yes Status: Acute Plan to address problem: Patient is stable postop day #1. When she passes flatus, will advance diet. Patient switched off of IV pain medication to p.o. pain meds. Subjective - Subjective Date of service: 08/10/20 Principal diagnosis: LLQ pain, TOA vs torsion Interval history: Patient is doing well. No fever, chills, nausea/vomiting, chest pain, or shortness of breath. P.o. tolerated well. Patient voiding without difficulty. Patient ambulating. No complaints. Adequate pain control. Objective - Vital Signs Latest vital signs: Vital Signs Temp Pulse Pulse Resp Resp BP BP 08/10/20 08:06 97.8 F 81 18 115/68 08/10/20 05:26 18 08/10/20 05:03 98.3 F 77 18 122/70 08/10/20 04:56 18 08/10/20 00:06 98.2 F 90 18 118/70 08/09/20 23:51 18 08/09/20 23:21 18 08/09/20 22:00 80 18 18 08/09/20 21:25 18 08/09/20 20:55 18 08/09/20 20:40 98.0 F 89 18 126/78 08/09/20 16:49 98.0 F 87 18 109/67 Pulse Ox 08/10/20 08:06 91 08/10/20 05:26 08/10/20 05:03 91 08/10/20 04:56 08/10/20 00:06 92 08/09/20 23:51 08/09/20 23:21 08/09/20 22:00 08/09/20 21:25 08/09/20 20:55 08/09/20 20:40 96 08/09/20 16:49 93 Intake and Output 08/09/20 08/10/20 08/10/20 23:59 07:59 15:59 Intake Total 150 250 Output Total 1400 800 Balance -1250 -550 Intake: IV 150 250 CLEOCIN 900 MG/50 mL 900 50 50 mg In 50 ml @ 100 mls/hr IV Q8HR [facility] Rx#:[id number] FLAGYL 500 MG/100 ML 500 100 mg In 100 ml @ 100 mls/hr IV Q8HR [facility] Rx#: [id number] GENTAMICIN/NS 120MG/100ML 100 100 120 mg In 100 ml @ 133. 333 mls/hr IV Q8H [facility] Rx# :[id number] Output: Urine 1400 800 Void 1400 800 Other: Total, Output Amount 400 400 Voiding Method Toilet # Voids 1 - Exam Abdomen: Present: normal appearance, soft, tenderness (Appropriately tender) Incision: Present: normal (Dressing intact), dressed
[2020-08-10] MEDS: oxyCODONE /ACETAMINOPHEN 5-325MG TAB PO PRN ×2 (17:48→22:22)
[2020-08-11] MEDS: metroNIDAZOLE/NS 500 MG/100 ML 500 MG/100 ML BAG IV SCH ×2 (01:04→08:57)
[2020-08-11] MEDS: GENTAMICIN/NS 120MG/100ML 120 MG/100 ML BAG IV SCH (05:02)
[2020-08-11] MEDS: oxyCODONE /ACETAMINOPHEN 5-325MG TAB PO PRN ×2 (05:18→11:09)
[2020-08-11] MEDS: D5W/LACTATED RINGERS 1,000 ML IV SCH (09:03)
--- NOTE | 2020-08-11 11:58 | Progress Note ---
Assessment and Plan - Patient Problems (1) Complex cyst of uterine adnexa Current Visit: Yes Status: Acute (2) Pelvic pain Current Visit: Yes Status: Acute Plan to address problem: Patient is stable postop day #2. Will discharge home today with her current p.o. pain meds. We will also send home with 10 more days of p.o. antibiotics to complete her treatment regimen in case of a TOA. Patient to follow-up in the office early next week for staple removal and to arrange for referral to oncology for surgery. Subjective - Subjective Date of service: 08/11/20 (POD 2) Principal diagnosis: LLQ pain, TOA vs torsion Interval history: Patient is doing well. No fever, chills, nausea/vomiting, chest pain, or shortness of breath. P.o. tolerated well. Patient voiding without difficulty. Patient ambulating. No complaints. Adequate pain control with pain meds. Positive flatus. Objective - Vital Signs Latest vital signs: Vital Signs Temp Pulse Resp Resp BP BP Pulse Ox 08/11/20 11:09 18 08/11/20 08:00 97.2 F L 82 18 18 107/63 93 08/11/20 05:18 20 08/11/20 04:57 98.1 F 81 18 132/76 95 08/11/20 00:59 98.5 F 79 18 119/71 92 08/10/20 22:22 20 08/10/20 20:07 98.0 F 91 H 20 109/62 93 08/10/20 16:48 98.4 F 81 18 114/69 93 Intake and Output 08/10/20 08/11/20 08/11/20 23:59 07:59 15:59 Intake Total 260 1100 Balance 260 1100 Intake: IV 260 1100 CLEOCIN 900 MG/50 mL 900 50 mg In 50 ml @ 100 mls/hr IV Q8HR [facility] Rx#:[id number] D5lr 1,000 ml @ 125 mls/ 1000 hr IV DIRECT [facility] Rx#: [id number] FLAGYL 500 MG/100 ML 500 100 100 mg In 100 ml @ 100 mls/hr IV Q8HR [facility] Rx#: [id number] GENTAMICIN/NS 120MG/100ML 100 120 mg In 100 ml @ 133. 333 mls/hr IV Q8H [facility] Rx# :[id number] Right Antecubital 10 Other: Voiding Method Toilet Toilet - Exam Abdomen: Present: normal appearance, soft, tenderness (appropriately tender) Incision: Present: normal, dry, intact
--- NOTE | 2020-08-11 12:05 | Discharge Summary ---
Providers - Providers Date of Admission: 08/08/20 03:05 Attending physician: SCOT CARLTON JR, MD Primary care physician: [employer] Hospitalization Hospital course: Patient is a 39-year-old walk-in patient with a history of hysterectomy who presented with left lower quadrant pain. Patient was found to have 6+ centimeter multiloculated cyst or mass in the pelvis. Patient elevated white count on admission which did resolve soon after antibiotic treatment was started. She also had hepatic steatosis on CAT scan. Her LFTs were slightly elevated on admission and improved during her hospital course. After around 36 hours of antibiotics patient was taken to the OR to attempt to remove or drain the cyst. Unfortunately patient had very significant scarring in the pelvis and the location of the mass was concerning as well for injury to the ureters. See operative report for details. As result cyst/mass cannot be excised or drained. Decision was made to arrange follow-up for the patient to have additional surgery with oncology. That will be arranged in the office next week when the patient follows up for staple removal. Postoperatively patient did well with no issues. By postop day #2 patient was stable for discharge and her pain was adequately controlled with p.o. pain meds. Patient sent home with those pain meds as well as 10 days of doxycycline and Flagyl to complete in case she did have a tubo-ovarian abscess. Patient advised to follow-up in the office early next week for staple removable and to arrange follow-up with oncology. Condition at discharge: Stable Disposition: [id number] TO HOME OR SELFCARE - Discharge Diagnoses (1) Complex cyst of uterine adnexa Status: Acute (2) Pelvic pain Status: Acute Plan - Discharge Medications Prescriptions: Doxycycline Monohydrate 100 mg PO BID 10 Days #20 capsule metroNIDAZOLE [Flagyl] 500 mg PO Q12HR 10 Days #20 tab Ibuprofen [Motrin 800 MG tab] 800 mg PO Q6HR PRN #30 tablet PRN Reason: Pain , Severe (7-10) oxyCODONE /ACETAMINOPHEN [Percocet 5/325] 1 tab PO Q4HR PRN #30 tab PRN Reason: Pain , Severe (7-10) - Provider Discharge Summary Additional instructions: [] Smoking cessation referral if applicable(refer to patient education folder for contact #) [] Refer to [employer] Booklet Call your doctor immediately for: * Fever > 100.5 * Heavy vaginal bleeding ( >1 pad per hour) * Severe persistent headache * Shortness of breath * Reddened, hot, painful area to leg or breast * Drainage or odor from incision. * Keep incision clean and dry at all times and follow doctor's instructions regarding bathing/showering - Follow up plan Follow up: SCOT CARLTON JR, MD [Staff Physician] - 3 Days Forms: [facility] Discharge Summary
[2020-08-11] MEDS: IBUPROFEN 800 MG TAB PO PRN (12:43)
[2020-08-11 13:38] VITALS: BP 108/69
== END 2020-08-11 13:20 | disposition home or self-care (01) ==
LOC: ED 20:23 → OB 08-08 03:05
PROVIDERS: ADMIT Obstetrics & Gynecology; ATTEND Obstetrics & Gynecology
DX: N85.8 Other specified noninflammatory disorders of uterus (principal); Z20.822 Contact with and (suspected) exposure to COVID-19; R65.10 Systemic inflammatory response syndrome (SIRS) of non-infectious origin without acute organ dysfunction; N83.8 Other noninflammatory disorders of ovary, fallopian tube and broad ligament; R74.01 Elevation of levels of liver transaminase levels; R10.2 Pelvic and perineal pain; Z98.891 History of uterine scar from previous surgery; Z90.710 Acquired absence of both cervix and uterus; Z90.49 Acquired absence of other specified parts of digestive tract
CPT/HCPCS: 36415; 44005; 74176; 74177; 80053; 80170; 81001; 81025; 82140; 82550; 83690; 83735; 85025; 87040; 87086; 93975; 96361; 96365; 96366; 96367; 96375; 96376; 99285; G0378; J1170; J1580; J1885; J2270; J2405; J2543; J2704; J2710; J2765; J7030; J7120; J7121; Q9967; U0003